=== PATIENT | female | born 2000 | race Caucasian/White ===

== ENCOUNTER → 2023-10-19 12:04 | Outpatient (REF) | payer BC, SELFPAY | LOC: CLAB 12:04 | PROVIDERS: ATTENDING PHYSICIAN Physician Assistant Medical | DX: N76.0 Acute vaginitis (principal) | CPT/HCPCS: 87086; 87491; 87591 ==

== ENCOUNTER → 2023-11-03 08:11 | Outpatient (REF) | payer BC, SELFPAY ==
[2023-11-03 12:17] LABS: FSH 3.4 mIU/ml; Luteinizing Hormone 4.27 mIU/ml; Prolactin 36.5 ng/ml (3.0-18.6)
[2023-11-03 12:32] LABS: Estradiol 91.1 pg/ml
== END ==
LOC: HWRAD 08:11
PROVIDERS: ATTENDING PHYSICIAN Physician Assistant; FAMILY PHYSICIAN Emergency Medicine
DX: E04.2 Nontoxic multinodular goiter (principal); E22.1 Hyperprolactinemia
CPT/HCPCS: 36415; 76536; 82670; 83001; 83002; 84146

== ENCOUNTER → 2023-12-27 11:46 | Outpatient (REF) | payer BC, SELFPAY ==
[2023-12-27 16:49] LABS: Urine Albumin Negative (Neg - Trace); Urine Bilirubin Negative (Negative); Urine Character Clear (Clear); Urine Color Yellow; Urine Glucose Negative (Negative); Urine Ketone Negative (Negative); Urine Leukocyte Negative (Negative); Urine Nitrite Negative (Negative); Urine Occult Blood Negative (Negative); Urine Specific Gravity 1.025 (<1.030); Urine Urobilinogen Negative (Neg - 1+)
[2023-12-28 15:33] LABS: Hepatitis B Surface Antigen Negative (Negative)
[2023-12-28 15:46] LABS: HIV Combo Negative (Negative)
[2023-12-28 15:50] LABS: Hepatitis C Antibody Negative (Negative)
[2023-12-29 14:47] LABS: Syphilis/T. pallidum Ab Reflex Negative (Negative)
== END ==
LOC: HWLAB 11:46
PROVIDERS: ATTENDING PHYSICIAN Nurse Practitioner Women's Health
DX: Z11.3 Encounter for screening for infections with a predominantly sexual mode of transmission (principal)
CPT/HCPCS: 36415; 81003; 86780; 86803; 87340; 87389

== ENCOUNTER → 2024-02-08 13:50 | Outpatient (REF) | payer BC, SELFPAY ==
[2024-02-08 14:46] LABS: % Basophils 0.3 % (0-2); % Immature Granulocytes 0.2 % (0-0.5); % Lymphocytes 26.8 % (20.5-51.1); % Monocytes 8.4 % (1.7-9.3); % Neutrophils 63.3 % (42.2-75.2); Absolute Eosinophils 0.1 10^3/uL (0-0.7); Absolute Lymphocytes 1.6 10^3/uL (1.2-3.4); Absolute Monocytes 0.5 10^3/uL (0.1-0.6); Absolute Neutrophils 3.7 10^3/uL (1.4-6.5); Hematocrit 41.1 % (37.0-47.0); Hemoglobin 13.8 g/dL (12.0-16.0); Mean Corp Hgb Conc. 33.6 g/dL (33.0-37.0); Mean Corpuscular Hgb 30.3 pg (27.0-31.0); Mean Corpuscular Volume 90.1 fL (81.0-99.0); Mean Platelet Volume 9.8 fL (7.4-10.4); Nucleated Red Blood Cells % 0 %; Platelet Count 236 10^3/uL (130-400); Red Blood Cell Count 4.56 10^6/uL (4.20-5.40); Red Cell Dist. Width 11.9 % (11.5-14.5); White Blood Cell Count 5.8 10^3/uL (4.8-10.8)
[2024-02-08 15:32] LABS: ALT (SGPT) 12 U/L (0-35); AST (SGOT) 20 U/L (14-36); Albumin 4.6 g/dl (3.5-5.0); Alkaline Phosphatase 57 U/L (38-126); Blood Urea Nitrogen 12 mg/dl (7-17); Calcium 9.5 mg/dl (8.4-10.2); Carbon Dioxide 26 mmol/L (22-30); Chloride 101 mmol/L (98-107); Glucose 100 mg/dl (70-99); Potassium 4.7 mmol/L (3.5-5.1); Sodium 138 mmol/L (135-145); Total Bilirubin 0.5 mg/dl (0.2-1.3); Total Protein 7.2 g/dl (6.3-8.2); eGFR > 60.00
[2024-02-08 15:46] LABS: Vitamin D, 25-OH*** 76.9 ng/mL (30-80)
[2024-02-08 16:00] LABS: TSH 0.57 uIU/ml (0.47-4.68)
[2024-02-08 16:01] LABS: Erythrocyte Sed Rate 8 mm/hour (0-20)
[2024-02-08 16:19] LABS: Vitamin B12 823 pg/ml (239-931)
[2024-02-11 03:50] LABS: EBV-EA (D) Ab IgG 19.5 U/mL (0.0-10.9); EBV-NA IgG >600.0 U/mL (0.0-21.9); EBV-VCA IgM Antibodies <10.0 U/mL (0.0-43.9)
== END ==
LOC: REG 13:50
PROVIDERS: ATTENDING PHYSICIAN Nurse Practitioner Family
DX: R53.83 Other fatigue (principal); R10.9 Unspecified abdominal pain; G43.909 Migraine, unspecified, not intractable, without status migrainosus; M25.50 Pain in unspecified joint
CPT/HCPCS: 36415; 80053; 82306; 82607; 84443; 85025; 85652; 86618; 86663; 86664; 86665

== ENCOUNTER → 2024-05-16 08:24 | Outpatient (REF) | payer BC, SELFPAY ==
[2024-05-16 09:49] LABS: % Basophils 0.8 % (0-2); % Immature Granulocytes 0.4 % (0-0.5); % Lymphocytes 30.8 % (20.5-51.1); % Monocytes 8.9 % (1.7-9.3); % Neutrophils 58.1 % (42.2-75.2); Absolute Eosinophils 0.1 10^3/uL (0-0.7); Absolute Lymphocytes 1.6 10^3/uL (1.2-3.4); Absolute Monocytes 0.5 10^3/uL (0.1-0.6); Hematocrit 40.5 % (37.0-47.0); Hemoglobin 13.5 g/dL (12.0-16.0); Mean Corp Hgb Conc. 33.3 g/dL (33.0-37.0); Mean Corpuscular Hgb 29.2 pg (27.0-31.0); Mean Corpuscular Volume 87.7 fL (81.0-99.0); Mean Platelet Volume 9.9 fL (7.4-10.4); Nucleated Red Blood Cells % 0 %; Platelet Count 264 10^3/uL (130-400); Red Blood Cell Count 4.62 10^6/uL (4.20-5.40); Red Cell Dist. Width 11.7 % (11.5-14.5); White Blood Cell Count 5.2 10^3/uL (4.8-10.8)
[2024-05-16 10:24] LABS: Glycohemoglobin (HgbA1c) 5.1 % (4.0-5.6)
[2024-05-16 11:44] LABS: ALT (SGPT) 18 U/L (0-35); AST (SGOT) 28 U/L (14-36); Albumin 4.8 g/dl (3.5-5.0); Alkaline Phosphatase 47 U/L (38-126); Blood Urea Nitrogen 16 mg/dl (7-17); Calcium 9.6 mg/dl (8.4-10.2); Carbon Dioxide 25 mmol/L (22-30); Chloride 101 mmol/L (98-107); Glucose 84 mg/dl (70-99); HDL Cholesterol 64 mg/dl; LDL Cholesterol, Calculated 80 mg/dl; Sodium 140 mmol/L (135-145); Total Bilirubin 0.7 mg/dl (0.2-1.3); Total Cholesterol 151 mg/dl (50-199); Total Protein 7.5 g/dl (6.3-8.2); Triglyceride 38 mg/dl (10-149); Very Low Density Lipoprotein 7 mg/dl (0-30); eGFR > 60.00
[2024-05-16 11:50] LABS: FSH 4.9 mIU/ml; Prolactin 10.3 ng/ml (3.0-18.6)
[2024-05-16 12:04] LABS: TSH Reflex To Free T4 0.82 uIU/ml (0.47-4.68)
[2024-05-16 12:05] LABS: Cortisol, Random 7.6 ug/dl; Estradiol 118.3 pg/ml
[2024-05-17 15:33] LABS: Adrenocorticotropic Hormone 8.1 pg/mL (7.2-63.3)
[2024-05-18 17:27] LABS: IGF-1 Z Score Calculation 0.8; Insulin-like Growth Factor I 253 ng/mL (102-317)
== END ==
LOC: REG 08:24
PROVIDERS: ATTENDING PHYSICIAN Physician Assistant; FAMILY PHYSICIAN Emergency Medicine
DX: G93.32 Myalgic encephalomyelitis/chronic fatigue syndrome (principal); Z00.00 Encounter for general adult medical examination without abnormal findings; D35.2 Benign neoplasm of pituitary gland; E22.1 Hyperprolactinemia; E04.2 Nontoxic multinodular goiter
CPT/HCPCS: 36415; 80053; 80061; 82024; 82533; 82670; 83001; 83002; 83036; 84146; 84305; 84443; 85025; 86663; 86664; 86665

== ENCOUNTER → 2024-05-27 14:54 | Outpatient (REF) | payer BC, SELFPAY ==
[2024-05-27 18:50] LABS: Hepatitis B Surface Antigen Negative (Negative)
[2024-05-28 14:48] LABS: HIV Combo Negative (Negative)
[2024-05-29 15:10] LABS: Syphilis/T. pallidum Ab Reflex Negative (Negative)
== END ==
LOC: REG 14:54
DX: Z11.3 Encounter for screening for infections with a predominantly sexual mode of transmission (principal)
CPT/HCPCS: 36415; 86780; 87340; 87389; 87522

== ENCOUNTER → 2024-05-27 18:24 | Outpatient (REF) | payer BC, SELFPAY | LOC: MRI 3T 18:24 | DX: D35.2 Benign neoplasm of pituitary gland (principal) | CPT/HCPCS: 70553; A9585 ==

== ENCOUNTER → 2024-11-01 06:38 | Outpatient (REF) | payer BC, SELFPAY ==
[2024-11-01 07:45] LABS: % Basophils 0.5 % (0-2); % Eosinophils 1.6 % (0-6); % Immature Granulocytes 0.5 % (0-0.5); % Lymphocytes 42.3 % (20.5-51.1); % Monocytes 8.8 % (1.7-9.3); % Neutrophils 46.3 % (42.2-75.2); Absolute Eosinophils 0.1 10^3/uL (0-0.7); Absolute Lymphocytes 2.6 10^3/uL (1.2-3.4); Absolute Monocytes 0.5 10^3/uL (0.1-0.6); Absolute Neutrophils 2.8 10^3/uL (1.4-6.5); Hematocrit 40.4 % (37.0-47.0); Hemoglobin 13.3 g/dL (12.0-16.0); Mean Corp Hgb Conc. 32.9 g/dL (33.0-37.0); Mean Corpuscular Hgb 29.5 pg (27.0-31.0); Mean Corpuscular Volume 89.6 fL (81.0-99.0); Nucleated Red Blood Cells % 0 %; Platelet Count 243 10^3/uL (130-400); Red Blood Cell Count 4.51 10^6/uL (4.20-5.40); Red Cell Dist. Width 11.9 % (11.5-14.5); White Blood Cell Count 6.1 10^3/uL (4.8-10.8)
[2024-11-01 07:56] LABS: HCG, Serum Qualitative Screen Negative
[2024-11-01 07:59] LABS: Blood Urea Nitrogen 23 mg/dl (7-17); Calcium 9.3 mg/dl (8.4-10.2); Carbon Dioxide 26 mmol/L (22-30); Chloride 110 mmol/L (98-107); Glucose 103 mg/dl (70-99); Iron 113 ug/dl (37-170); Potassium 4.7 mmol/L (3.5-5.1); Sodium 142 mmol/L (135-145); eGFR > 60.00
[2024-11-01 08:10] LABS: Percent Saturation 52 % (20-50); Total Iron Binding Capacity 217 ug/dl (265-497)
[2024-11-01 08:43] LABS: FSH 4.8 mIU/ml; Free T4 1.05 ng/dl (0.78-2.19); Prolactin 23.3 ng/ml (3.0-18.6)
[2024-11-01 08:57] LABS: TSH 1.65 uIU/ml (0.47-4.68)
[2024-11-01 08:58] LABS: Estradiol 45.7 pg/ml
[2024-11-01 08:59] LABS: Cortisol, Random 16.1 ug/dl
[2024-11-01 09:03] LABS: Ferritin 79.2 ng/ml (6.24-137)
[2024-11-01 17:05] LABS: ALT (SGPT) 19 U/L (0-35); AST (SGOT) 26 U/L (14-36); Albumin 4.5 g/dl (3.5-5.0); Alkaline Phosphatase 71 U/L (38-126); Direct Bilirubin 0.2 mg/dl (0.0-0.4); Total Bilirubin 0.3 mg/dl (0.2-1.3)
[2024-11-02 21:38] LABS: Adrenocorticotropic Hormone 20.5 pg/mL (7.2-63.3)
== END ==
LOC: REG 06:38
PROVIDERS: ATTENDING PHYSICIAN Emergency Medicine
DX: R63.4 Abnormal weight loss (principal); R55 Syncope and collapse; Z86.2 Personal history of diseases of the blood and blood-forming organs and certain disorders involving the immune mechanism; D35.2 Benign neoplasm of pituitary gland; L29.9 Pruritus, unspecified
CPT/HCPCS: 36415; 80048; 80076; 82024; 82533; 82670; 82728; 83001; 83540; 83550; 84146; 84439; 84443; 84703; 85025

== ENCOUNTER → 2024-11-07 07:16 | Outpatient (REF) | payer BC, SELFPAY | LOC: RAD 07:16 | PROVIDERS: ATTENDING PHYSICIAN Emergency Medicine | DX: R55 Syncope and collapse (principal); R53.83 Other fatigue; R63.4 Abnormal weight loss; R59.0 Localized enlarged lymph nodes; R22.1 Localized swelling, mass and lump, neck | CPT/HCPCS: 71260; 74177; Q9967 ==

== ENCOUNTER → 2024-11-13 20:26 | Outpatient (REF) | payer BC, SELFPAY | LOC: MRI 3T 20:26 | PROVIDERS: ATTENDING PHYSICIAN Emergency Medicine | DX: R55 Syncope and collapse (principal); R53.83 Other fatigue; R63.4 Abnormal weight loss; R42 Dizziness and giddiness; Z86.018 Personal history of other benign neoplasm | CPT/HCPCS: 70553; A9575 ==

== ENCOUNTER → 2025-04-25 10:28 | Outpatient (REF) | payer BC, SELFPAY ==
[2025-04-25 12:09] LABS: Hematocrit 38.3 % (37.0-47.0); Hemoglobin 12.7 g/dL (12.0-16.0); Mean Corp Hgb Conc. 33.2 g/dL (33.0-37.0); Mean Corpuscular Volume 87.4 fL (81.0-99.0); Platelet Count 214 10^3/uL (130-400); Red Cell Dist. Width 11.7 % (11.5-14.5)
[2025-04-25 12:51] LABS: FSH 2.1 mIU/ml
[2025-04-25 13:08] LABS: Cortisol, Random 6.6 ug/dl; TSH 0.65 uIU/ml (0.47-4.68)
[2025-04-27 16:32] LABS: IGF-1 Z Score Calculation -0.2
== END ==
LOC: HWLAB 10:28
PROVIDERS: ATTENDING PHYSICIAN Physician Assistant; FAMILY PHYSICIAN Emergency Medicine
DX: E22.1 Hyperprolactinemia (principal); D35.2 Benign neoplasm of pituitary gland; E04.2 Nontoxic multinodular goiter
CPT/HCPCS: 82024; 82533; 82670; 83001; 83002; 84146; 84305; 84439; 84443; 85027

== ENCOUNTER → 2025-05-15 09:15 | Outpatient (REF) | payer OTHER, SELFPAY | LOC: OHS 09:15 | PROVIDERS: ATTENDING PHYSICIAN Nurse Practitioner Family | DX: Z23 Encounter for immunization (principal) | CPT/HCPCS: 36415; 86480; 86706 ==